=== PATIENT | female | born 1950 | race Caucasian/White ===

== ENCOUNTER → 2017-07-02 | Outpatient (CLI) | payer MEDICARE, OTHER ==
--- NOTE | 2017-07-02 11:54 | EKG ---
Date Performed: 07/02/2017 Time Performed: 10:09:06 PTAGE: 66 years EKG: Baseline artifact present PROBABLE Sinus rhythm . Right bundle branch block Lateral T wave changes are nonspecific Abnormal ECG NO PREVIOUS TRACING DOCTOR: Solomon Beard Interpretating Date/Time 07/02/2017 11:53:49
== END ==
LOC: HCAV 09:55
DX: I10 Essential (primary) hypertension (principal)
CPT/HCPCS: 93005